=== PATIENT | female | born 1955 | race Caucasian/White ===

== ENCOUNTER → 2017-05-20 | Outpatient (CLI) | payer OTHER ==
[~2017-05-20] MED LIST: ALBUAER19 INH; BCTROWC TD; CLON1TAB3 PO; DIPH-416 PO; DOCU-94 PO; GABA-113 PO; LEVO50TA PO; LORA-741 PO; NSNN50 NAE; ONDA8TAB6 PO; PANT1TAB48 PO; POLYSOL4 OP; SERT1TAB68 PO
--- NOTE | 2017-05-21 13:57 | MAMMOGRAPHY REPORT ---
BILATERAL DIGITAL SCREENING MAMMOGRAM WITH CAD: 05/20/2017 CLINICAL HISTORY: Routine screening. Patient has no complaints. TECHNIQUE: Current study was also evaluated with a Computer Aided Detection (CAD) system. Bilateral CC and MLO views were obtained. COMPARISON: Comparison is made to exams dated: 11/20/2013 ultrasound, 11/20/2013 mammogram, 01/26/2013 mammogram, 09/24/2011 mammogram - [facility], 06/15/2007, and 06/15/2007. BREAST COMPOSITION: The tissue of both breasts is heterogeneously dense, which may obscure small mas ses. FINDINGS: No suspicious masses, calcifications, or areas of architectural distortion are noted in ei ther breast. There has been no significant interval change compared to prior exams. Scattered bilate ral benign-appearing calcifications are again noted. Asymmetry within the right superior posterior b reast on the MLO view is stable. IMPRESSION: ACR BI-RADS CATEGORY 2: BENIGN There is no mammographic evidence of malignancy. A 1 year screening mammogram is recommended. The pa tient will receive written notification of the results. Approximately 10% of breast cancers are not detected with mammography. A negative mammographic report should not delay biopsy if a clinically suggestive mass is present. Elodia Thornton M.D. /:05/20/2017 16:30:30 [employer]: Elsa Salmeron, [facility] letter sent: Normal 1/2 BI-RADS Code: ACR BI-RADS Category 2: Benign
== END | disposition home or self-care (01) ==
LOC: C.MAMM 13:44
PROVIDERS: ATTEND Nurse Practitioner Family
DX: Z12.31 Encounter for screening mammogram for malignant neoplasm of breast (principal)